=== PATIENT | female | born 1995 | race African-American/Black ===

== ENCOUNTER 2017-07-20 11:03 | Emergency (ER) | payer BC ==
[~2017-07-20] VITALS: Ht 175.3 cm; Wt 75.7 kg
[2017-07-20 12:22] VITALS: BP 132/78
== END 2017-07-20 12:32 | disposition home or self-care (01) ==
LOC: FSED 11:03
DX: R05 Cough (principal); J00 Acute nasopharyngitis [common cold]
CPT/HCPCS: 99282

== ENCOUNTER 2017-07-22 10:33 | Emergency (ER) | payer BC ==
[~2017-07-22] VITALS: Ht 175.3 cm; Wt 75.3 kg
--- OUTSIDE RECORDS SUMMARY | 2017-07-22 10:36 | XMS REPORT | Continuity of Care Document ---
Author Author [facility] Organization [facility] Address [address] [place] [address] Phone Unavailable Care Team Providers Care Scheduling Representative Name Role Phone NONSTAFF PCP Unavailable Insurance Providers Guarantor Aliyah Munoz Address [address] [place] [address] Email [email or web address] Payer [facility] Ppo Policy Number [id number] Subscriber's Name Margarita Tovar Relationship 32 Mother Group Number [id number] Group Name [facility] Effective Date 17 Advance Directives Directive Response Recorded Date/Time Does the patient have an advance directive? No 07/20/17 11:42am If yes, is advance directive on file with [facility]? No 07/20/17 11:42am If not on file with [facility] will patient provide a copy? No 07/20/17 11:42am Do you have a Directive to Physician? No 07/20/17 11:42am Do you have a Medical Power of Reading Instructor? No 07/20/17 11:42am Do you have an out of hospital Do Not Resuscitate Order? No 07/20/17 11:42am Do you have any special needs we should be aware of? No 07/20/17 11:42am Do you have a support person here with you today? Yes 07/20/17 11:42am Did patient receive Notice of Privacy Practices? Yes 07/20/17 11:42am Did patient receive patient rights and responsibilities? Yes 07/20/17 11:42am Problems No problem information available. Medications No medication information available. Social History Smoking Status Start Date Stop Date Never Smoker Hospital Discharge Instructions No hospital discharge instruction information available. Plan of Care Discharge Date 07/20/17 12:32pm Disposition HOME, SELF-CARE Condition at Discharge Stable Instructions/Education Provided Otitis Externa - Adult Forms Provided Work/School Excuse Prescriptions See Medication Section Additional Instructions/Education ACUTE RHINITIS, FOLLOW UP WITH PCP IN 3 DAYS. RETURN TO ER IF SYMPTOMS WORSEN OR CHANGE OR IF NOT IMPROVING EXPECTED Functional Status No functional status information available. Allergies, Adverse Reactions, Alerts No allergy information available. Immunizations No immunization information available. Vital Signs Acute Vital Signs Vital Response Date/Time Temperature (Fahrenheit) 98.6 degrees F (97.6 - 99.5) 07/20/2017 12:22pm Pulse Pulse Rate (adult) 88 bpm (60 - 90) 07/20/2017 12:22pm Respiratory Rate 18 bpm (12 - 24) 07/20/2017 12:22pm Blood Pressure 132/78 mm Hg 07/20/2017 12:22pm Height 5 ft 9 in 07/20/2017 11:10am Weight 167 lb 07/20/2017 11:10am Body Mass Index 24.7 kg/m^2 07/20/2017 11:48am Results No relevant diagnostic test, laboratory data and/or discharge summary information available. Procedures No procedure information available. Encounters Encounter Location Arrival/Admit Date Discharge/Depart Date Attending Provider Departed Emergency Room [facility] 07/20/17 11:03am 07/20 12:32pm ELVER GLASS MD
[2017-07-22] MEDS ORDERED: BROMFED DM COU118 ML PO (10:57)
[2017-07-22] MEDS ORDERED: NASONEX17 GM (10:57)
[2017-07-22] MEDS ORDERED: XYZAL5 MG PO (10:57)
[2017-07-22] MEDS ORDERED: IBUPROFEN400 MG PO (10:57)
[2017-07-22 11:02] VITALS: BP 125/86
== END 2017-07-22 11:04 | disposition home or self-care (01) ==
LOC: FSED 10:33
DX: J03.90 Acute tonsillitis, unspecified (principal)
CPT/HCPCS: 99282

== ENCOUNTER → 2020-08-04 | Outpatient (CLI) | payer OTHER ==
[~2020-08-04] MED LIST: BROMFED DM COU118 ML PO; COVID-19 VACC, MRNA(MODERNA)/PF 100 MCG/0.5 ML VIAL IM ONE; IBUPROFEN400 MG PO; NASONEX17 GM; XYZAL5 MG PO
== END | disposition home or self-care (01) ==
LOC: VACCPMC 08:32
DX: Z23 Encounter for immunization (principal); Z20.822 Contact with and (suspected) exposure to COVID-19
CPT/HCPCS: 91301

== ENCOUNTER → 2020-09-01 | Outpatient (CLI) | payer BC | END | disposition home or self-care (01) | LOC: VACCPMC 08:00 | DX: Z23 Encounter for immunization (principal); Z20.822 Contact with and (suspected) exposure to COVID-19 | CPT/HCPCS: 91301 ==

== ENCOUNTER 2020-09-13 13:48 | Emergency (ER) | payer BC, OTHER ==
[~2020-09-13] VITALS: Ht 172.7 cm; Wt 83.6 kg
[~2020-09-13 13:48] MED LIST changes: -COVID-19 VACC, MRNA(MODERNA)/PF 100 MCG/0.5 ML VIAL IM ONE
[2020-09-13] MEDS ORDERED: SODIUM CHLORIDE 0.9% 1000ML 1,000 ML ONE (14:25)
[2020-09-13] MEDS ORDERED: ONDANSETRON HCL INJ 2MG/ML 2ML 2 MG/ML VIAL ONE (14:25)
[2020-09-13] MEDS ORDERED: FAMOTIDINE 20 MG/2 ML VIAL IV ONE (14:26)
[2020-09-13] MEDS ORDERED: SODIUM CHLORIDE 0.9% 1000ML 1,000 ML IV STA (14:59)
[2020-09-13] MEDS ORDERED: FAMOTIDINE 20 MG/2 ML VIAL IV STA (14:59)
[2020-09-13] MEDS ORDERED: ONDANSETRON HCL INJ 2MG/ML 2ML 2 MG/ML VIAL IV STA (14:59)
[2020-09-13] MEDS ORDERED: ONDANSETRON ODT4 MG PO (16:04)
[2020-09-13] MEDS ORDERED: FAMOTIDINE40 MG PO (16:06)
[2020-09-13 16:07] VITALS: BP 119/79
== END 2020-09-13 16:17 | disposition home or self-care (01) ==
LOC: FSED 14:40
DX: R11.2 Nausea with vomiting, unspecified (principal); K52.9 Noninfective gastroenteritis and colitis, unspecified; D64.9 Anemia, unspecified
CPT/HCPCS: 80053; 81003; 81025; 85025; 96374; 96375; 99283; J2405; J7030

== ENCOUNTER 2023-03-02 11:04 | Emergency (ER) | payer OTHER ==
[~2023-03-02] VITALS: Ht 172.7 cm; Wt 80.7 kg
[~2023-03-02 11:04] MED LIST changes: +FAMOTIDINE40 MG PO; +ONDANSETRON ODT4 MG PO
[2023-03-02 11:19] VITALS: O2SAT 100
[2023-03-02] MEDS ORDERED: ACETAMINOPHEN 325 MG TAB PO ONE (11:30)
[2023-03-02] MEDS ORDERED: NAPROSYN500 MG PO (11:30)
[2023-03-02] MEDS ORDERED: ACETAMINOPHEN 325 MG TAB ONE (11:53)
== END 2023-03-02 12:13 | disposition home or self-care (01) ==
LOC: FSED 11:12
DX: M25.511 Pain in right shoulder (principal); R07.89 Other chest pain; V43.52XA Car driver injured in collision with other type car in traffic accident, initial encounter; Y92.488 Other paved roadways as the place of occurrence of the external cause
CPT/HCPCS: 71046; 99282